=== PATIENT | female | born 1930 | race Caucasian/White ===

== ENCOUNTER 2016-08-17 09:00 | Inpatient (IN) | payer OTHER ==
[~2016-08-17] VITALS: Ht 154.9 cm; Wt 50.3 kg
[~2016-08-17 09:00] MED LIST: AMOX TR-K CLV1 EAC4 PO; ASPIRIN EC325 MG PO; ATIVAN1 MG PO; FOSAMAX70 MG PO; HYDROCODON-ACE1 EAC7 PO; IRON325 M1 PO; LO-DOSE ASPIRIN81 M1 PO; SENNA-TIME S T1 EACH PO; TYLENOL EXTRA500 MG PO; VITAMIN D33000 UNIT PO
[2016-08-17 10:16] VITALS: BP 107/61
[2016-08-17 16:49] LABS: HEMATOCRIT 31.8 % (36.0-46.0); MCH 30.3 PG (29.0-34.0); MCHC 32.7 G/DL (30.0-36.0); MCV 92.7 FL (83-99); MEAN PLAT.VOLUME 10.1 uM^3 (9.5-12.4); PLATELET COUNT 188 K/uL (156-360); RBC DIS.WIDTH-CV 12.6 % (11.8-14.6); RBC DIS.WIDTH-SD 42.9 % (39-53); RED BLOOD COUNT 3.43 M/uL (3.80-5.20); WHITE BLOOD COUNT 8.8 K/uL (4.1-10.2)
[2016-08-17 22:07] VITALS: BP 125/60
[2016-08-17 23:27] VITALS: BP 114/60
[2016-08-18 04:25] VITALS: BP 121/60
[2016-08-18 05:53] LABS: HEMATOCRIT 31.8 % (36.0-46.0); MCH 30.3 PG (29.0-34.0); MCV 91.6 FL (83-99); MEAN PLAT.VOLUME 10.6 uM^3 (9.5-12.4); PLATELET COUNT 198 K/uL (156-360); RBC DIS.WIDTH-CV 12.5 % (11.8-14.6); RBC DIS.WIDTH-SD 41.7 % (39-53); RED BLOOD COUNT 3.47 M/uL (3.80-5.20); WHITE BLOOD COUNT 8.5 K/uL (4.1-10.2)
[2016-08-18 06:22] LABS: ANION GAP 8 MEQ/L (2-14); CHLORIDE 103 MEQ/L (99-109); GFR ESTIMATE (CALCULATED) 56 mL/min/; GLUCOSE 122 mg/dL (70-99); POTASSIUM 3.8 MEQ/L (3.7-5.4); SAMPLE HEMOLYSIS CHECK 0; SAMPLE ICTERIC CHECK 0; SAMPLE LIPEMIA CHECK 0; SODIUM 136 MEQ/L (136-147); UREA NITROGEN (BUN) 11 mg/dL (9-23)
[2016-08-18 08:00] VITALS: BP 118/63
[2016-08-18 16:00] VITALS: BP 123/60
[2016-08-18 16:00] LABS: HEMATOCRIT 32.2 % (36.0-46.0); MCV 89.7 FL (83-99)
[2016-08-19] VITALS: BP 131/94
[2016-08-19] MEDS ORDERED: HYDROCODON-ACE1 EAC7 PO (08:38)
[2016-08-19] MEDS ORDERED: SENNA PLUS TAB1 EACH PO (08:38)
[2016-08-19] MEDS ORDERED: LOVENOX30 MG/0.3 SC (08:38)
[2016-08-19] MEDS ORDERED: CELECOXIB200 MG PO (08:38)
[2016-08-19 08:44] VITALS: BP 144/72
[2016-08-19 15:52] VITALS: BP 137/85
== END 2016-08-19 16:20 | DRG 470 ==
LOC: 3EAST 09:00 → 2SOUTH 09:00 → 3EAST 19:09
PROVIDERS: Orthopaedic Surgery
PROC: 0SRB02A Replacement of Left Hip Joint with Metal on Polyethylene Synthetic Substitute, Uncemented, Open Approach (ICD-10-PCS; principal; 2016-08-17)
DX: M16.12 Unilateral primary osteoarthritis, left hip (principal); M21.372 Foot drop, left foot; M81.0 Age-related osteoporosis without current pathological fracture; Z96.653 Presence of artificial knee joint, bilateral; Z88.1 Allergy status to other antibiotic agents; Z88.2 Allergy status to sulfonamides
CPT/HCPCS: 73501; 76000; 80048; 85014; 85018; 85027; 97530 GP; J0690; J1170; J1650; J2250; J3010; J7030; J7050

== ENCOUNTER 2016-08-19 10:48 | Inpatient (IN) | payer OTHER ==
[~2016-08-19] VITALS: Ht 154.9 cm; Wt 53.4 kg
[~2016-08-19 10:48] MED LIST changes: +CELECOXIB200 MG PO; +LOVENOX30 MG/0.3 SC; +SENNA PLUS TAB1 EACH PO
[2016-08-19 16:39] VITALS: BP 132/65
[2016-08-20] VITALS: BP 111/57
[2016-08-20 05:28] VITALS: BP 106/52
[2016-08-20 06:26] LABS: HEMATOCRIT 27.7 % (36.0-46.0); MCH 30.7 PG (29.0-34.0); MCHC 33.6 G/DL (30.0-36.0); MCV 91.4 FL (83-99); MEAN PLAT.VOLUME 10.9 uM^3 (9.5-12.4); PLATELET COUNT 185 K/uL (156-360); RBC DIS.WIDTH-SD 43.5 % (39-53); RED BLOOD COUNT 3.03 M/uL (3.80-5.20); WHITE BLOOD COUNT 8.9 K/uL (4.1-10.2)
[2016-08-20 06:50] LABS: ALKALINE PHOSPHATASE 55 IU/L (3-129); ANION GAP 7 MEQ/L (2-14); CHLORIDE 109 MEQ/L (99-109); GFR ESTIMATE (CALCULATED) > 59 mL/min/; GLUCOSE 100 mg/dL (70-99); POTASSIUM 3.5 MEQ/L (3.7-5.4); SAMPLE HEMOLYSIS CHECK 0; SAMPLE ICTERIC CHECK 0; SAMPLE LIPEMIA CHECK 0; SODIUM 141 MEQ/L (136-147); TOTAL BILIRUBIN 0.6 MG/DL (0.0-1.0); UREA NITROGEN (BUN) 12 mg/dL (9-23)
[2016-08-20 16:01] VITALS: BP 104/58
[2016-08-21 05:48] VITALS: BP 117/58
[2016-08-21 16:01] VITALS: BP 105/57
[2016-08-22 05:42] VITALS: BP 115/65
[2016-08-22 16:30] VITALS: BP 117/63
[2016-08-23 05:44] VITALS: BP 116/69
[2016-08-23 15:45] VITALS: BP 129/61
[2016-08-24 05:31] VITALS: BP 114/56
[2016-08-24 15:28] VITALS: BP 125/56
[2016-08-25 05:56] VITALS: BP 111/52
[2016-08-25 15:08] VITALS: BP 107/56
[2016-08-25] MEDS ORDERED: FOLIC ACID1 MG PO (18:38)
[2016-08-25] MEDS ORDERED: SENNA PLUS TAB1 EACH PO (18:38)
[2016-08-25] MEDS ORDERED: ALPRAZOLAM0.25 M2 PO (18:38)
[2016-08-25] MEDS ORDERED: ASCORBIC ACID500 M3 PO (18:38)
[2016-08-25] MEDS ORDERED: LIDOCAINE700 MG TD (18:38)
[2016-08-25 20:59] LABS: HEMATOCRIT 32.1 % (36.0-46.0); MCH 30.3 PG (29.0-34.0); MCHC 32.4 G/DL (30.0-36.0); MCV 93.6 FL (83-99); RBC DIS.WIDTH-CV 13.6 % (11.8-14.6); RBC DIS.WIDTH-SD 46.2 % (39-53); RED BLOOD COUNT 3.43 M/uL (3.80-5.20); WHITE BLOOD COUNT 9.1 K/uL (4.1-10.2)
[2016-08-25 21:05] LABS: MEAN PLAT.VOLUME 9.6 uM^3 (9.5-12.4); PLATELET COUNT 321 K/uL (156-360)
[2016-08-25 21:23] LABS: ANION GAP 11 MEQ/L (2-14); CHLORIDE 103 MEQ/L (99-109); GFR ESTIMATE (CALCULATED) > 59 mL/min/; GLUCOSE 117 mg/dL (70-99); POTASSIUM 4.1 MEQ/L (3.7-5.4); SAMPLE HEMOLYSIS CHECK 0; SAMPLE ICTERIC CHECK 0; SAMPLE LIPEMIA CHECK 0; SODIUM 139 MEQ/L (136-147)
[2016-08-25 22:02] LABS: UREA NITROGEN (BUN) 23 mg/dL (9-23)
[2016-08-26 04:37] VITALS: BP 100/57
== END 2016-08-26 14:39 | DRG 560 ==
LOC: 3WEST 10:48
PROVIDERS: Physical Medicine & Rehabilitation Pain Medicine
PROC: F07M0ZZ Range of Motion and Joint Mobility Treatment of Musculoskeletal System - Whole Body (ICD-10-PCS; principal; 2016-08-19)
DX: Z47.32 Aftercare following explantation of hip joint prosthesis (principal); Z96.642 Presence of left artificial hip joint; R26.2 Difficulty in walking, not elsewhere classified; D62 Acute posthemorrhagic anemia; M21.372 Foot drop, left foot; E83.51 Hypocalcemia; E87.6 Hypokalemia; F41.9 Anxiety disorder, unspecified; M81.0 Age-related osteoporosis without current pathological fracture; M47.816 Spondylosis without myelopathy or radiculopathy, lumbar region; M48.06 Spinal stenosis, lumbar region; Z96.653 Presence of artificial knee joint, bilateral; Z88.1 Allergy status to other antibiotic agents; Z88.2 Allergy status to sulfonamides; Z88.5 Allergy status to narcotic agent
CPT/HCPCS: 80048; 80053; 85027; 97110 GO; 97530 GP; J1650

== ENCOUNTER 2016-10-15 14:59 | Inpatient (IN) | payer OTHER ==
[~2016-10-15] VITALS: Ht 154.9 cm; Wt 66.2 kg
[~2016-10-15 14:59] MED LIST changes: +ALPRAZOLAM0.25 M2 PO; +ASCORBIC ACID500 M3 PO; +FOLIC ACID1 MG PO; +LIDOCAINE700 MG TD
[2016-10-15 16:03] LABS: HEMATOCRIT 43.8 % (36.0-46.0); MCH 29.5 PG (29.0-34.0); MCHC 32.6 G/DL (30.0-36.0); MCV 90.3 FL (83-99); PLATELET COUNT 167 K/uL (156-360); RBC DIS.WIDTH-CV 12.9 % (11.8-14.6); RBC DIS.WIDTH-SD 42.9 % (39-53); RED BLOOD COUNT 4.85 M/uL (3.80-5.20); WHITE BLOOD COUNT 5.9 K/uL (4.1-10.2)
[2016-10-15 16:12] LABS: CHLORIDE 100 mEq/L (99-109); POTASSIUM 3.9 mEq/L (3.7-5.4); SODIUM 137 mEq/L (136-147)
[2016-10-15 16:14] LABS: GLUCOSE 110 mg/dL (70-99)
[2016-10-15 16:15] LABS: ANION GAP 17 MEQ/L (2-14)
[2016-10-15 16:16] LABS: TOTAL BILIRUBIN 0.6 mg/dL (0.0-1.0)
[2016-10-15 16:18] LABS: ALKALINE PHOSPHATASE 79 IU/L (3-129); GFR ESTIMATE (CALCULATED) 25 mL/min/
[2016-10-15 16:19] LABS: UREA NITROGEN (BUN) 42 mg/dL (9-23)
[2016-10-15 18:00] LABS: INFLUENZA A VIRAL ANTIGEN NEGATIVE
[2016-10-15 18:01] LABS: INFLUENZA B VIRAL ANTIGEN POSITIVE
[2016-10-15] MEDS ORDERED: LIDODERM 5% P1 PATCH TD (18:21)
[2016-10-15 18:34] LABS: ADD MIUA? YES; BILIRUBIN NEGATIVE; BLOOD MODERATE; GLUCOSE (STRIP) NEGATIVE; KETONES NEGATIVE; LEUKOCYTES NEGATIVE; NITRITE NEGATIVE; PROTEIN (STRIP) 100; UROBILINOGEN 0.2 MG/DL (0.2-1.0)
[2016-10-15 18:40] LABS: COLOR DK YELLOW ((YELLOW))
[2016-10-15 19:39] LABS: BACTERIA NONE SEEN /HPF; CALCIUM OXALATE CRYSTALS 1+ /HPF; EPITHELIAL CELLS RARE /HPF; MUCUS NONE SEEN /LPF; RED BLOOD CELLS 0-5 /HPF (0-5); WHITE BLOOD CELLS 0-5 /HPF (0-5)
[2016-10-15 20:07] LABS: BASE EXCESS -4.5 mEq/L (-3 to +3); BICARBONATE 17.8 mEq/L (22-26); CARBOXY HGB 1.5 % (0-5); METHEMOGLOBIN 1.2 % (0-1.5); PCO2 25 mm Hg (35-45); PO2 64 mm Hg (80-100); SITE RR; pH 7.46 (7.35-7.45)
[2016-10-15 20:08] LABS: COMMENTS - BLOOD GASES A+C+; DEVICE HHFNC; FI02 100 %; O2 FLOW 40 L/MIN
[2016-10-15 21:01] VITALS: BP 95/80
[2016-10-15 22:00] VITALS: BP 100/51
[2016-10-15 23:00] VITALS: BP 98/52
[2016-10-15 23:13] LABS: METH RESISTANT S AUREUS PCR NEGATIVE (NEGATIVE)
[2016-10-15 23:16] LABS: PROBE CHECK PASS; SPECIMEN PROCESSING CONTROL PASS
[2016-10-16] VITALS (24 sets, daily range): BP systolic 65–150; BP diastolic 41–81
[2016-10-16 07:18] LABS: ALKALINE PHOSPHATASE 55 IU/L (3-129); ANION GAP 11 MEQ/L (2-14); CHLORIDE 109 MEQ/L (99-109); DIRECT BILIRUBIN 0.2 mg/dL (0.0-0.3); GLUCOSE 87 mg/dL (70-99); POTASSIUM 3.6 MEQ/L (3.7-5.4); SAMPLE HEMOLYSIS CHECK 0; SAMPLE ICTERIC CHECK 0; SAMPLE LIPEMIA CHECK 0; SODIUM 140 MEQ/L (136-147); TOTAL BILIRUBIN 0.7 MG/DL (0.0-1.0); UREA NITROGEN (BUN) 31 mg/dL (9-23)
[2016-10-16 07:56] LABS: GFR ESTIMATE (CALCULATED) 41 mL/min/; VANCOMYCIN, TROUGH 6.5 MCG/ML (10-20)
[2016-10-16 10:05] LABS: HEMATOCRIT 38.2 % (36.0-46.0); MCHC 32.5 G/DL (30.0-36.0); MCV 92.3 FL (83-99); MEAN PLAT.VOLUME 11.8 uM^3 (9.5-12.4); PLATELET COUNT 123 K/uL (156-360); RBC DIS.WIDTH-CV 13.2 % (11.8-14.6); RBC DIS.WIDTH-SD 45.1 % (39-53); RED BLOOD COUNT 4.14 M/uL (3.80-5.20); WHITE BLOOD COUNT 5.7 K/uL (4.1-10.2)
[2016-10-16 10:40] LABS: ABS NEUTROPHIL COUNT 5.5; EOSINOPHIL ABS CT 0; INSTRUMENT ABS NEUTROPHIL CT 5.3 K/uL; LYMPHOCYTES 1.7 % (15.0-45.0); METAMYELOCYTES 0.9 %; MICROCYTOSIS 1+; PLAT.SUFFICIENCY DECREASED; SEG.NEUTROPHILS 56.5 % (46.0-76.0)
[2016-10-16 15:32] LABS: ABS NEUTROPHIL COUNT 5.6; EOSINOPHIL ABS CT 0; HEMATOCRIT 33.3 % (36.0-46.0); INSTRUMENT ABS NEUTROPHIL CT 5.5 K/uL; MCH 30.2 PG (29.0-34.0); MCHC 33.3 G/DL (30.0-36.0); MCV 90.7 FL (83-99); PLATELET COUNT 121 K/uL (156-360); RBC DIS.WIDTH-CV 13.2 % (11.8-14.6); RBC DIS.WIDTH-SD 43.8 % (39-53); RED BLOOD COUNT 3.67 M/uL (3.80-5.20); WHITE BLOOD COUNT 6.3 K/uL (4.1-10.2)
[2016-10-17] VITALS (19 sets, daily range): BP systolic 95–163; BP diastolic 50–95
[2016-10-17 06:05] LABS: HEMATOCRIT 36.3 % (36.0-46.0); MCH 29.9 PG (29.0-34.0); MCHC 33.1 G/DL (30.0-36.0); MCV 90.3 FL (83-99); MEAN PLAT.VOLUME 11.5 uM^3 (9.5-12.4); PLATELET COUNT 136 K/uL (156-360); RBC DIS.WIDTH-CV 13.3 % (11.8-14.6); RBC DIS.WIDTH-SD 44.5 % (39-53); RED BLOOD COUNT 4.02 M/uL (3.80-5.20); WHITE BLOOD COUNT 7.9 K/uL (4.1-10.2)
[2016-10-17 06:31] LABS: ALKALINE PHOSPHATASE 64 IU/L (3-129); ANION GAP 11 MEQ/L (2-14); CHLORIDE 113 MEQ/L (99-109); GLUCOSE 85 mg/dL (70-99); POTASSIUM 3.1 MEQ/L (3.7-5.4); SAMPLE HEMOLYSIS CHECK 0; SAMPLE ICTERIC CHECK 0; SAMPLE LIPEMIA CHECK 0; SODIUM 145 MEQ/L (136-147); UREA NITROGEN (BUN) 22 mg/dL (9-23)
[2016-10-17 06:34] LABS: GFR ESTIMATE (CALCULATED) > 59 mL/min/; TOTAL BILIRUBIN 1.8 MG/DL (0.0-1.0)
[2016-10-17 06:54] LABS: ABS NEUTROPHIL COUNT 7.4; BAND NEUTROPHILS 23.3 % (0-8.0); BURR CELLS 2+; EOSINOPHIL ABS CT 0.1; EOSINOPHILS 0.8 % (0-5.0); HELMET CELLS 1+; INSTRUMENT ABS NEUTROPHIL CT 6.9 K/uL; LYMPHOCYTES 4.3 % (15.0-45.0); OVALOCYTES 1+; PLAT.SUFFICIENCY DECREASED; POIKILOCYTOSIS 2+; SEG.NEUTROPHILS 70.7 % (46.0-76.0)
[2016-10-18] VITALS (23 sets, daily range): BP systolic 86–167; BP diastolic 53–101
[2016-10-18 06:33] LABS: ANION GAP 12 MEQ/L (2-14); CHLORIDE 110 MEQ/L (99-109); GFR ESTIMATE (CALCULATED) > 59 mL/min/; POTASSIUM 3.6 MEQ/L (3.7-5.4); SAMPLE HEMOLYSIS CHECK 0; SAMPLE ICTERIC CHECK 1; SAMPLE LIPEMIA CHECK 0; SODIUM 144 MEQ/L (136-147); UREA NITROGEN (BUN) 19 mg/dL (9-23)
[2016-10-18 06:35] LABS: GLUCOSE 131 mg/dL (70-99)
[2016-10-18 10:27] LABS: BASE EXCESS 1.6 mEq/L (-3 to +3); BICARBONATE 24.6 mEq/L (22-26); COMMENTS - BLOOD GASES NEG A+C+; DEVICE HFNC; O2 FLOW 10 L/MIN; PCO2 33 mm Hg (35-45); PO2 86 mm Hg (80-100); SITE LB; TOTAL RESP RATE 28 resp/min; pH 7.48 (7.35-7.45)
[2016-10-18 19:27] LABS: ANION GAP 12 MEQ/L (2-14); CHLORIDE 111 MEQ/L (99-109); GFR ESTIMATE (CALCULATED) > 59 mL/min/; GLUCOSE 125 mg/dL (70-99); MAGNESIUM 2.3 mg/dl (1.3-2.7); POTASSIUM 3.7 MEQ/L (3.7-5.4); SAMPLE HEMOLYSIS CHECK 0; SAMPLE ICTERIC CHECK 1; SAMPLE LIPEMIA CHECK 0; SODIUM 146 MEQ/L (136-147); UREA NITROGEN (BUN) 21 mg/dL (9-23)
[2016-10-18 20:40] LABS: BASE EXCESS -4.2 mEq/L (-3 to +3); CARBOXY HGB 1.3 % (0-5); COMMENTS - BLOOD GASES C+; DEVICE VENT; FI02 100 %; MECHANICAL RATE 16 resp/min; METHEMOGLOBIN 1.7 % (0-1.5); MODE A/C; PCO2 38 mm Hg (35-45); PO2 190 mm Hg (80-100); SITE ALINE; TOTAL RESP RATE 39 resp/min; pH 7.35 (7.35-7.45)
[2016-10-18 20:41] LABS: PEEP 5 CM/H20; TIDAL VOLUME 350 ML
[2016-10-19] VITALS (7 sets, daily range): BP systolic 92–105; BP diastolic 50–59
[2016-10-19 00:55] LABS: CREATINE KINASE 605 IU/L (1-294); TOTAL CK 605 IU/L (1-294)
[2016-10-19 01:01] LABS: CK-MB 7.8 ng/mL (0.0-4.9)
[2016-10-19 01:11] LABS: TROP-I INTERPRETATION POSITIVE; TROPONIN-I 0.69 ng/mL (0.0-0.30)
[2016-10-19 06:16] LABS: TROP-I INTERPRETATION INDETERMINATE
[2016-10-19 06:39] LABS: HEMATOCRIT 31.9 % (36.0-46.0); MCH 29.3 PG (29.0-34.0); MCHC 32.9 G/DL (30.0-36.0); MCV 89.1 FL (83-99); MEAN PLAT.VOLUME 10.7 uM^3 (9.5-12.4); NRBC (%) 0.1 /100 WBC (0-0); RBC DIS.WIDTH-CV 14.1 % (11.8-14.6); RBC DIS.WIDTH-SD 46.5 % (39-53); RED BLOOD COUNT 3.58 M/uL (3.80-5.20)
[2016-10-19 06:47] LABS: PLATELET COUNT 207 K/uL (156-360); WHITE BLOOD COUNT 14.9 K/uL (4.1-10.2)
[2016-10-19 07:07] LABS: EOSINOPHIL (%) 0.1 % (0-5); IMMATURE GRANULOCYTE (%) 2.1 % (0.0-0.7); IMMATURE GRANULOCYTE COUNT 0.3 K/uL; INSTRUMENT ABS NEUTROPHIL CT 12.9 K/uL; LYMPHOCYTE COUNT 1.2 K/uL (1.0-2.8); MONOCYTE (%) 2.6 % (3-12); MONOCYTE COUNT 0.4 K/uL (0-0.8); NEUTROPHIL (%) 86.7 % (45-76); NEUTROPHIL COUNT 12.9 K/uL (1.8-6.4)
[2016-10-19 07:17] LABS: CK-MB 5.4 ng/mL (0.0-4.9)
[2016-10-19 07:21] LABS: ANION GAP 12 MEQ/L (2-14); CHLORIDE 109 MEQ/L (99-109); CREATINE KINASE 439 IU/L (1-294); GFR ESTIMATE (CALCULATED) > 59 mL/min/; GLUCOSE 181 mg/dL (70-99); MAGNESIUM 2.3 mg/dl (1.3-2.7); SAMPLE HEMOLYSIS CHECK 0; SAMPLE ICTERIC CHECK 0; SAMPLE LIPEMIA CHECK 0; SODIUM 148 MEQ/L (136-147); TOTAL CK 439 IU/L (1-294); UREA NITROGEN (BUN) 22 mg/dL (9-23)
[2016-10-19 09:05] LABS: INTERNAL CONTROL VALID? YES
[2016-10-19 10:07] LABS: BASE EXCESS 5.4 mEq/L (-3 to +3); CARBOXY HGB 1.4 % (0-5); METHEMOGLOBIN 1.8 % (0-1.5)
[2016-10-19 10:08] LABS: BICARBONATE 27.2 mEq/L (22-26); COMMENTS - BLOOD GASES C+; DEVICE 840 VENT; INSPIRATION TIME 0.8 seconds; MECHANICAL RATE 18 resp/min; MODE ACPC; PCO2 29 mm Hg (35-45); PEEP 5 CM/H20; PO2 78 mm Hg (80-100); PRESSURE CONTROL VENTILATION 18 CM H20; SITE A LINE; TOTAL RESP RATE 18 resp/min; pH 7.58 (7.35-7.45)
[2016-10-19 12:08] LABS: POINT-OF-CARE METER ID UU13113803
[2016-10-19 12:46] LABS: CREATINE KINASE 470 IU/L (1-294); TOTAL CK 470 IU/L (1-294)
[2016-10-19 12:50] LABS: TROP-I INTERPRETATION NEGATIVE
[2016-10-19 12:51] LABS: CK-MB 4.8 ng/mL (0.0-4.9)
[2016-10-19 17:57] LABS: POINT-OF-CARE METER ID UU14162636
[2016-10-19 18:51] LABS: TROP-I INTERPRETATION NEGATIVE; TROPONIN-I 0.18 ng/mL (0.0-0.30)
[2016-10-19 19:05] LABS: CREATINE KINASE 551 IU/L (1-294); TOTAL CK 551 IU/L (1-294)
[2016-10-19 19:27] LABS: ANION GAP 11 MEQ/L (2-14); CHLORIDE 110 MEQ/L (99-109); GFR ESTIMATE (CALCULATED) > 59 mL/min/; GLUCOSE 131 mg/dL (70-99); POTASSIUM 3.2 MEQ/L (3.7-5.4); SAMPLE HEMOLYSIS CHECK 0; SAMPLE ICTERIC CHECK 0; SAMPLE LIPEMIA CHECK 0; SODIUM 145 MEQ/L (136-147); UREA NITROGEN (BUN) 16 mg/dL (9-23)
[2016-10-19 19:50] LABS: MAGNESIUM 1.9 mg/dl (1.3-2.7)
[2016-10-20 05:43] LABS: POINT-OF-CARE METER ID UU14162636
[2016-10-20 05:46] LABS: HEMATOCRIT 28.5 % (36.0-46.0); MCH 29.9 PG (29.0-34.0); MCHC 33.3 G/DL (30.0-36.0); MCV 89.6 FL (83-99); MEAN PLAT.VOLUME 10.8 uM^3 (9.5-12.4); PLATELET COUNT 169 K/uL (156-360); RBC DIS.WIDTH-CV 14.5 % (11.8-14.6); RBC DIS.WIDTH-SD 47.1 % (39-53); RED BLOOD COUNT 3.18 M/uL (3.80-5.20)
[2016-10-20 06:51] LABS: GFR ESTIMATE (CALCULATED) > 59 mL/min/; GLUCOSE 132 mg/dL (70-99); MAGNESIUM 1.8 mg/dl (1.3-2.7); SAMPLE HEMOLYSIS CHECK 0; SAMPLE ICTERIC CHECK 0; SAMPLE LIPEMIA CHECK 0; UREA NITROGEN (BUN) 15 mg/dL (9-23)
[2016-10-20 06:59] LABS: ABS NEUTROPHIL COUNT 14.9; EOSINOPHIL ABS CT 0.3; EOSINOPHILS 1.7 % (0-5.0); INSTRUMENT ABS NEUTROPHIL CT 14.2 K/uL; LYMPHOCYTES 9.5 % (15.0-45.0); PLAT.SUFFICIENCY ADEQUATE; SEG.NEUTROPHILS 81.9 % (46.0-76.0)
[2016-10-20 07:01] LABS: ANION GAP 10 MEQ/L (2-14); CHLORIDE 108 MEQ/L (99-109); POTASSIUM 3.4 MEQ/L (3.7-5.4); SODIUM 142 MEQ/L (136-147)
[2016-10-20 11:33] LABS: BASE EXCESS 2.8 mEq/L (-3 to +3); BICARBONATE 24.5 mEq/L (22-26); CARBOXY HGB 2.1 % (0-5); METHEMOGLOBIN 1.8 % (0-1.5); PCO2 28 mm Hg (35-45); PO2 76 mm Hg (80-100); pH 7.55 (7.35-7.45)
[2016-10-20 11:35] LABS: COMMENTS - BLOOD GASES C+ANA; DEVICE 840 PB; SITE ALINE
[2016-10-20 11:36] LABS: FI02 30 %; INSPIRATION TIME 0.9 seconds; MECHANICAL RATE 14 resp/min; MODE AC PC; PEEP 8 CM/H20; PRESSURE CONTROL VENTILATION 18 CM H20; TOTAL RESP RATE 21 resp/min
[2016-10-20 11:37] LABS: POINT-OF-CARE METER ID UU14162636
[2016-10-20 14:42] LABS: BASE EXCESS 1.6 mEq/L (-3 to +3); BICARBONATE 22.7 mEq/L (22-26); PCO2 26 mm Hg (35-45); PO2 66 mm Hg (80-100); pH 7.55 (7.35-7.45)
[2016-10-20 14:45] LABS: COMMENTS - BLOOD GASES C+ANA; DEVICE 840 PB; FI02 30 %; INSPIRATION TIME 0.9 seconds; MECHANICAL RATE 12 resp/min; MODE AC PC; PEEP 5 CM/H20; PRESSURE CONTROL VENTILATION 15 CM H20; SITE ALINE; TOTAL RESP RATE 24 resp/min
[2016-10-20 16:31] LABS: HEMATOCRIT 30.4 % (36.0-46.0); MCH 29.8 PG (29.0-34.0); MCHC 33.2 G/DL (30.0-36.0); MCV 89.7 FL (83-99); MEAN PLAT.VOLUME 10.6 uM^3 (9.5-12.4); NRBC (%) 0.1 /100 WBC (0-0); PLATELET COUNT 196 K/uL (156-360); RBC DIS.WIDTH-CV 14.8 % (11.8-14.6); RBC DIS.WIDTH-SD 48.8 % (39-53); RED BLOOD COUNT 3.39 M/uL (3.80-5.20); WHITE BLOOD COUNT 21.8 K/uL (4.1-10.2)
[2016-10-20 17:21] LABS: C DIFF TOXIN NEGATIVE (NEGATIVE)
[2016-10-20 17:33] LABS: PROBE CHECK PASS; SPECIMEN PROCESSING CONTROL PASS
[2016-10-20 18:34] LABS: POINT-OF-CARE METER ID UU14162636
[2016-10-20 23:26] LABS: POINT-OF-CARE METER ID UU14162636
[2016-10-21 05:00] VITALS: BP 114/62
[2016-10-21 06:09] LABS: HEMATOCRIT 28.5 % (36.0-46.0); MCH 29.8 PG (29.0-34.0); MCV 90.5 FL (83-99); MEAN PLAT.VOLUME 10.9 uM^3 (9.5-12.4); NRBC (%) 0.1 /100 WBC (0-0); PLATELET COUNT 202 K/uL (156-360); RBC DIS.WIDTH-CV 14.9 % (11.8-14.6); RBC DIS.WIDTH-SD 49.7 % (39-53); RED BLOOD COUNT 3.15 M/uL (3.80-5.20); WHITE BLOOD COUNT 21.9 K/uL (4.1-10.2)
[2016-10-21 06:55] LABS: ANION GAP 12 MEQ/L (2-14); CHLORIDE 111 MEQ/L (99-109); GFR ESTIMATE (CALCULATED) > 59 mL/min/; GLUCOSE 129 mg/dL (70-99); MAGNESIUM 1.7 mg/dl (1.3-2.7); POTASSIUM 3.7 MEQ/L (3.7-5.4); SAMPLE HEMOLYSIS CHECK 0; SAMPLE ICTERIC CHECK 0; SAMPLE LIPEMIA CHECK 0; SODIUM 144 MEQ/L (136-147); UREA NITROGEN (BUN) 16 mg/dL (9-23)
[2016-10-21 07:14] LABS: POINT-OF-CARE METER ID UU13113803
[2016-10-21 07:30] VITALS: BP 110/65
[2016-10-21 07:57] LABS: ABS NEUTROPHIL COUNT 21.1; ANISOCYTOSIS 1+; BAND NEUTROPHILS 4.6 % (0-8.0); EOSINOPHIL ABS CT 0; INSTRUMENT ABS NEUTROPHIL CT 19.1 K/uL; LYMPHOCYTES 2.7 % (15.0-45.0); MYELOCYTES 0.9 %; PLAT.SUFFICIENCY ADEQUATE; SEG.NEUTROPHILS 91.8 % (46.0-76.0); SMUDGE CELLS 1.8
[2016-10-21 11:51] LABS: POINT-OF-CARE METER ID UU13113803
[2016-10-21 13:52] LABS: BASE EXCESS -0.6 mEq/L (-3 to +3); BICARBONATE 22.3 mEq/L (22-26); CARBOXY HGB 2.5 % (0-5); METHEMOGLOBIN 1.8 % (0-1.5); PCO2 30 mm Hg (35-45); pH 7.48 (7.35-7.45)
[2016-10-21 13:53] LABS: PO2 52 mm Hg (80-100)
[2016-10-21 13:54] LABS: COMMENTS - BLOOD GASES C+ANA; DEVICE 840 PB; FI02 30 %; INSPIRATION TIME 0.9 seconds; MECHANICAL RATE 12 resp/min; MODE ACPC; PRESSURE CONTROL VENTILATION 13 CM H20; SITE ALINE; TOTAL RESP RATE 26 resp/min
[2016-10-21 13:55] LABS: PEEP 5 CM/H20
[2016-10-21 17:54] LABS: POINT-OF-CARE METER ID UU13113803
[2016-10-21 23:00] VITALS: BP 110/65
[2016-10-22] VITALS (10 sets, daily range): BP systolic 78–151; BP diastolic 40–87
[2016-10-22 05:22] LABS: POINT-OF-CARE METER ID UU13113731
[2016-10-22 05:49] LABS: HEMATOCRIT 26.3 % (36.0-46.0); MCH 29.4 PG (29.0-34.0); MCHC 32.3 G/DL (30.0-36.0); MEAN PLAT.VOLUME 10.6 uM^3 (9.5-12.4); NRBC (%) 0.1 /100 WBC (0-0); PLATELET COUNT 205 K/uL (156-360); RBC DIS.WIDTH-CV 14.8 % (11.8-14.6); RBC DIS.WIDTH-SD 49.9 % (39-53); RED BLOOD COUNT 2.89 M/uL (3.80-5.20); WHITE BLOOD COUNT 19.3 K/uL (4.1-10.2)
[2016-10-22 07:09] LABS: EOSINOPHIL (%) 0.5 % (0-5); EOSINOPHIL COUNT 0.1 K/uL (0-0.3); HEMATOLOGY COMMENT 1 SMEAR COMPATIBLE; IMMATURE GRANULOCYTE (%) 4.3 % (0.0-0.7); IMMATURE GRANULOCYTE COUNT 0.8 K/uL; INSTRUMENT ABS NEUTROPHIL CT 16.9 K/uL; LYMPHOCYTE COUNT 1.1 K/uL (1.0-2.8); MONOCYTE (%) 1.7 % (3-12); MONOCYTE COUNT 0.3 K/uL (0-0.8); NEUTROPHIL (%) 87.5 % (45-76); NEUTROPHIL COUNT 16.9 K/uL (1.8-6.4); PLAT.SUFFICIENCY ADEQUATE
[2016-10-22 07:32] LABS: ANION GAP 11 MEQ/L (2-14); CHLORIDE 111 MEQ/L (99-109); GFR ESTIMATE (CALCULATED) > 59 mL/min/; GLUCOSE 149 mg/dL (70-99); MAGNESIUM 1.8 mg/dl (1.3-2.7); POTASSIUM 3.3 MEQ/L (3.7-5.4); SAMPLE HEMOLYSIS CHECK 0; SAMPLE ICTERIC CHECK 0; SAMPLE LIPEMIA CHECK 0; SODIUM 144 MEQ/L (136-147); UREA NITROGEN (BUN) 15 mg/dL (9-23)
[2016-10-22 11:22] LABS: BASE EXCESS -1.3 mEq/L (-3 to +3); BICARBONATE 21.8 mEq/L (22-26); CARBOXY HGB 2.4 % (0-5); METHEMOGLOBIN 1.7 % (0-1.5); PCO2 30 mm Hg (35-45); PO2 54 mm Hg (80-100); pH 7.47 (7.35-7.45)
[2016-10-22 11:23] LABS: COMMENTS - BLOOD GASES C+ANA; DEVICE 840 PB; FI02 30 %; MECHANICAL RATE 12 resp/min; MODE AC; PEEP 5 CM/H20; SITE ALINE; TIDAL VOLUME 400 ML; TOTAL RESP RATE 34 resp/min
[2016-10-22 12:30] LABS: POINT-OF-CARE METER ID UU13113731
[2016-10-22 18:13] LABS: POINT-OF-CARE METER ID UU13113731
[2016-10-23] VITALS (25 sets, daily range): BP systolic 78–145; BP diastolic 48–79
[2016-10-23 00:14] LABS: BASE EXCESS -0.6 mEq/L (-3 to +3); BICARBONATE 21.8 mEq/L (22-26); COMMENTS - BLOOD GASES A+C+; METHEMOGLOBIN 1.9 % (0-1.5); PCO2 28 mm Hg (35-45); PO2 72 mm Hg (80-100); SITE RR
[2016-10-23 00:15] LABS: DEVICE 840; FI02 40 %; MECHANICAL RATE 12 resp/min; MODE AC; PEEP 5 CM/H20; TIDAL VOLUME 400 ML; TOTAL RESP RATE 44 resp/min
[2016-10-23 01:23] LABS: POINT-OF-CARE METER ID UU14162636
[2016-10-23 05:43] LABS: POINT-OF-CARE METER ID UU14162636
[2016-10-23 06:18] LABS: ANION GAP 10 MEQ/L (2-14); CHLORIDE 111 MEQ/L (99-109); GFR ESTIMATE (CALCULATED) > 59 mL/min/; GLUCOSE 164 mg/dL (70-99); POTASSIUM 3.8 MEQ/L (3.7-5.4); SAMPLE HEMOLYSIS CHECK 0; SAMPLE ICTERIC CHECK 0; SAMPLE LIPEMIA CHECK 0; SODIUM 142 MEQ/L (136-147); UREA NITROGEN (BUN) 12 mg/dL (9-23)
[2016-10-23 07:21] LABS: EOSINOPHIL (%) 0.4 % (0-5); EOSINOPHIL COUNT 0.1 K/uL (0-0.3); HEMATOCRIT 30.6 % (36.0-46.0); IMMATURE GRANULOCYTE (%) 2.3 % (0.0-0.7); IMMATURE GRANULOCYTE COUNT 0.5 K/uL; INSTRUMENT ABS NEUTROPHIL CT 19.8 K/uL; LYMPHOCYTE COUNT 1.2 K/uL (1.0-2.8); MCH 29.6 PG (29.0-34.0); MCV 89.7 FL (83-99); MEAN PLAT.VOLUME 10.6 uM^3 (9.5-12.4); MONOCYTE (%) 2.3 % (3-12); MONOCYTE COUNT 0.5 K/uL (0-0.8); NEUTROPHIL (%) 89.4 % (45-76); NEUTROPHIL COUNT 19.8 K/uL (1.8-6.4); NRBC (%) 0.1 /100 WBC (0-0); RBC DIS.WIDTH-CV 14.7 % (11.8-14.6); RBC DIS.WIDTH-SD 48.5 % (39-53); RED BLOOD COUNT 3.41 M/uL (3.80-5.20); WHITE BLOOD COUNT 22.2 K/uL (4.1-10.2)
[2016-10-23 07:26] LABS: PLATELET COUNT 340 K/uL (156-360)
[2016-10-23 12:14] LABS: POINT-OF-CARE METER ID UU13113731
[2016-10-23 13:01] LABS: BASE EXCESS -1.9 mEq/L (-3 to +3); BICARBONATE 20.3 mEq/L (22-26); CARBOXY HGB 2.1 % (0-5); METHEMOGLOBIN 1.6 % (0-1.5); PCO2 26 mm Hg (35-45); PO2 73 mm Hg (80-100)
[2016-10-23 13:02] LABS: COMMENTS - BLOOD GASES +C; DEVICE PB840; FI02 40 %; MECHANICAL RATE 12 resp/min; MODE AC; PEEP 5 CM/H20; SITE RR +A; TIDAL VOLUME 400 ML; TOTAL RESP RATE 40 resp/min
[2016-10-23 18:11] LABS: POINT-OF-CARE METER ID UU13113803
[2016-10-24] VITALS (18 sets, daily range): BP systolic 88–136; BP diastolic 49–70
[2016-10-24 00:32] LABS: POINT-OF-CARE METER ID UU13113803
[2016-10-24 05:57] LABS: BASOPHIL COUNT 0.1 K/uL (0-0.1); EOSINOPHIL (%) 0.6 % (0-5); EOSINOPHIL COUNT 0.1 K/uL (0-0.3); HEMATOCRIT 30.4 % (36.0-46.0); IMMATURE GRANULOCYTE (%) 4.2 % (0.0-0.7); IMMATURE GRANULOCYTE COUNT 0.8 K/uL; INSTRUMENT ABS NEUTROPHIL CT 16.8 K/uL; MCH 29.8 PG (29.0-34.0); MCHC 32.2 G/DL (30.0-36.0); MCV 92.4 FL (83-99); MEAN PLAT.VOLUME 10.3 uM^3 (9.5-12.4); MONOCYTE (%) 3.2 % (3-12); MONOCYTE COUNT 0.6 K/uL (0-0.8); NEUTROPHIL (%) 86.6 % (45-76); NEUTROPHIL COUNT 16.8 K/uL (1.8-6.4); NRBC (%) 0.2 /100 WBC (0-0); PLATELET COUNT 359 K/uL (156-360); RBC DIS.WIDTH-CV 15.3 % (11.8-14.6); RED BLOOD COUNT 3.29 M/uL (3.80-5.20); WHITE BLOOD COUNT 19.4 K/uL (4.1-10.2)
[2016-10-24 06:38] LABS: ANION GAP 8 MEQ/L (2-14); CHLORIDE 110 MEQ/L (99-109); GFR ESTIMATE (CALCULATED) > 59 mL/min/; MAGNESIUM 1.9 mg/dl (1.3-2.7); POTASSIUM 4.1 MEQ/L (3.7-5.4); SAMPLE HEMOLYSIS CHECK 0; SAMPLE ICTERIC CHECK 0; SAMPLE LIPEMIA CHECK 0; SODIUM 140 MEQ/L (136-147); UREA NITROGEN (BUN) 12 mg/dL (9-23)
[2016-10-24 06:41] LABS: GLUCOSE 120 mg/dL (70-99)
[2016-10-24 17:58] LABS: POINT-OF-CARE METER ID UU13113803
[2016-10-24 23:49] LABS: POINT-OF-CARE METER ID UU13113803
[2016-10-25] VITALS (13 sets, daily range): BP systolic 95–137; BP diastolic 50–65
[2016-10-25 06:02] LABS: EOSINOPHIL (%) 0.9 % (0-5); EOSINOPHIL COUNT 0.1 K/uL (0-0.3); HEMATOCRIT 27.1 % (36.0-46.0); IMMATURE GRANULOCYTE (%) 1.9 % (0.0-0.7); IMMATURE GRANULOCYTE COUNT 0.3 K/uL; INSTRUMENT ABS NEUTROPHIL CT 13.5 K/uL; LYMPHOCYTE COUNT 0.8 K/uL (1.0-2.8); MCH 29.5 PG (29.0-34.0); MCHC 32.5 G/DL (30.0-36.0); MCV 90.9 FL (83-99); MEAN PLAT.VOLUME 10.4 uM^3 (9.5-12.4); MONOCYTE (%) 2.8 % (3-12); MONOCYTE COUNT 0.4 K/uL (0-0.8); NEUTROPHIL (%) 88.8 % (45-76); NEUTROPHIL COUNT 13.5 K/uL (1.8-6.4); PLATELET COUNT 437 K/uL (156-360); RBC DIS.WIDTH-CV 15.4 % (11.8-14.6); RBC DIS.WIDTH-SD 51.3 % (39-53); RED BLOOD COUNT 2.98 M/uL (3.80-5.20); WHITE BLOOD COUNT 15.1 K/uL (4.1-10.2)
[2016-10-25 06:14] LABS: POINT-OF-CARE METER ID UU13113731
[2016-10-25 06:49] LABS: ANION GAP 11 MEQ/L (2-14); CHLORIDE 110 MEQ/L (99-109); GFR ESTIMATE (CALCULATED) > 59 mL/min/; GLUCOSE 150 mg/dL (70-99); MAGNESIUM 1.7 mg/dl (1.3-2.7); POTASSIUM 3.7 MEQ/L (3.7-5.4); SAMPLE HEMOLYSIS CHECK 0; SAMPLE ICTERIC CHECK 0; SAMPLE LIPEMIA CHECK 0; SODIUM 139 MEQ/L (136-147); UREA NITROGEN (BUN) 13 mg/dL (9-23)
[2016-10-25 12:46] LABS: POINT-OF-CARE METER ID UU13113731
[2016-10-26] VITALS (10 sets, daily range): BP systolic 90–134; BP diastolic 44–75
[2016-10-26 00:59] LABS: POINT-OF-CARE METER ID UU13113731; POINT-OF-CARE USER ID PHATLC
[2016-10-26 05:39] LABS: POINT-OF-CARE METER ID UU13113731; POINT-OF-CARE USER ID PHATLC
[2016-10-26 05:58] LABS: BASOPHIL COUNT 0.1 K/uL (0-0.1); EOSINOPHIL COUNT 0.1 K/uL (0-0.3); HEMATOCRIT 31.1 % (36.0-46.0); IMMATURE GRANULOCYTE (%) 1.4 % (0.0-0.7); IMMATURE GRANULOCYTE COUNT 0.2 K/uL; INSTRUMENT ABS NEUTROPHIL CT 11.8 K/uL; MCH 29.2 PG (29.0-34.0); MCHC 31.5 G/DL (30.0-36.0); MCV 92.6 FL (83-99); MEAN PLAT.VOLUME 10.3 uM^3 (9.5-12.4); MONOCYTE (%) 3.1 % (3-12); MONOCYTE COUNT 0.4 K/uL (0-0.8); NEUTROPHIL (%) 86.8 % (45-76); NEUTROPHIL COUNT 11.8 K/uL (1.8-6.4); PLATELET COUNT 499 K/uL (156-360); RBC DIS.WIDTH-CV 15.6 % (11.8-14.6); RBC DIS.WIDTH-SD 53.1 % (39-53); RED BLOOD COUNT 3.36 M/uL (3.80-5.20); WHITE BLOOD COUNT 13.6 K/uL (4.1-10.2)
[2016-10-26 06:48] LABS: ANION GAP 11 MEQ/L (2-14); CHLORIDE 109 MEQ/L (99-109); GFR ESTIMATE (CALCULATED) > 59 mL/min/; GLUCOSE 113 mg/dL (70-99); MAGNESIUM 1.8 mg/dl (1.3-2.7); SAMPLE HEMOLYSIS CHECK 0; SAMPLE ICTERIC CHECK 0; SAMPLE LIPEMIA CHECK 0; SODIUM 141 MEQ/L (136-147); UREA NITROGEN (BUN) 13 mg/dL (9-23)
[2016-10-26 11:50] LABS: POINT-OF-CARE METER ID UU14162636
[2016-10-26 18:15] LABS: POINT-OF-CARE METER ID UU14162636
[2016-10-27] VITALS: BP 109/56
[2016-10-27 00:21] LABS: POINT-OF-CARE METER ID UU13113731; POINT-OF-CARE USER ID PHATLC
[2016-10-27 04:00] VITALS: BP 113/46
[2016-10-27 05:14] LABS: POINT-OF-CARE METER ID UU13113731; POINT-OF-CARE USER ID PHATLC
[2016-10-27 05:49] LABS: EOSINOPHIL (%) 1.2 % (0-5); EOSINOPHIL COUNT 0.2 K/uL (0-0.3); HEMATOCRIT 23.1 % (36.0-46.0); IMMATURE GRANULOCYTE (%) 1.2 % (0.0-0.7); IMMATURE GRANULOCYTE COUNT 0.2 K/uL; INSTRUMENT ABS NEUTROPHIL CT 11.7 K/uL; LYMPHOCYTE COUNT 1.3 K/uL (1.0-2.8); MCH 29.7 PG (29.0-34.0); MCHC 32.9 G/DL (30.0-36.0); MCV 90.2 FL (83-99); MEAN PLAT.VOLUME 10.2 uM^3 (9.5-12.4); MONOCYTE (%) 3.2 % (3-12); MONOCYTE COUNT 0.4 K/uL (0-0.8); NEUTROPHIL COUNT 11.7 K/uL (1.8-6.4); PLATELET COUNT 601 K/uL (156-360); RBC DIS.WIDTH-CV 15.4 % (11.8-14.6); RBC DIS.WIDTH-SD 50.7 % (39-53); WHITE BLOOD COUNT 13.8 K/uL (4.1-10.2)
[2016-10-27 05:52] LABS: RED BLOOD COUNT 2.56 M/uL (3.80-5.20)
[2016-10-27 05:59] LABS: ANION GAP 8 MEQ/L (2-14); CHLORIDE 110 MEQ/L (99-109); GFR ESTIMATE (CALCULATED) > 59 mL/min/; GLUCOSE 124 mg/dL (70-99); MAGNESIUM 1.6 mg/dl (1.3-2.7); POTASSIUM 3.5 MEQ/L (3.7-5.4); SAMPLE HEMOLYSIS CHECK 0; SAMPLE ICTERIC CHECK 0; SAMPLE LIPEMIA CHECK 0; SODIUM 139 MEQ/L (136-147); UREA NITROGEN (BUN) 11 mg/dL (9-23)
[2016-10-27 08:00] VITALS: BP 162/74
[2016-10-27 09:00] VITALS: BP 162/74
[2016-10-27 12:29] LABS: POINT-OF-CARE METER ID UU13113803
[2016-10-27 16:00] VITALS: BP 129/63
[2016-10-27 17:00] VITALS: BP 151/75
[2016-10-27 18:12] LABS: POINT-OF-CARE METER ID UU14174217
[2016-10-27 23:37] LABS: POINT-OF-CARE METER ID UU14162636
[2016-10-28] VITALS: BP 114/53
[2016-10-28 04:00] VITALS: BP 111/56
[2016-10-28 05:48] LABS: POINT-OF-CARE METER ID UU14162636
[2016-10-28 05:55] LABS: BASOPHIL COUNT 0.1 K/uL (0-0.1); EOSINOPHIL COUNT 0.3 K/uL (0-0.3); HEMATOCRIT 22.4 % (36.0-46.0); IMMATURE GRANULOCYTE (%) 1.5 % (0.0-0.7); IMMATURE GRANULOCYTE COUNT 0.2 K/uL; INSTRUMENT ABS NEUTROPHIL CT 10.7 K/uL; LYMPHOCYTE COUNT 1.6 K/uL (1.0-2.8); MCH 29.3 PG (29.0-34.0); MCHC 32.1 G/DL (30.0-36.0); MCV 91.1 FL (83-99); MONOCYTE (%) 3.3 % (3-12); MONOCYTE COUNT 0.4 K/uL (0-0.8); NEUTROPHIL (%) 80.9 % (45-76); NEUTROPHIL COUNT 10.7 K/uL (1.8-6.4); NRBC (%) 0.2 /100 WBC (0-0); PLATELET COUNT 682 K/uL (156-360); RBC DIS.WIDTH-CV 15.6 % (11.8-14.6); RBC DIS.WIDTH-SD 52.1 % (39-53); RED BLOOD COUNT 2.46 M/uL (3.80-5.20); WHITE BLOOD COUNT 13.2 K/uL (4.1-10.2)
[2016-10-28 06:10] LABS: CHLORIDE 111 MEQ/L (99-109); POTASSIUM 3.7 MEQ/L (3.7-5.4); SODIUM 140 MEQ/L (136-147)
[2016-10-28 06:54] LABS: ANION GAP 7 MEQ/L (2-14); GFR ESTIMATE (CALCULATED) > 59 mL/min/; MAGNESIUM 1.6 mg/dl (1.3-2.7); SAMPLE HEMOLYSIS CHECK 0; SAMPLE ICTERIC CHECK 0; SAMPLE LIPEMIA CHECK 0; UREA NITROGEN (BUN) 12 mg/dL (9-23)
[2016-10-28 07:02] LABS: GLUCOSE 84 mg/dL (70-99)
[2016-10-28 09:57] VITALS: BP 93/40
[2016-10-28 12:43] LABS: VANCOMYCIN, TROUGH 5.7 MCG/ML (10-20)
[2016-10-28 13:00] LABS: POINT-OF-CARE METER ID UU14174217
[2016-10-28 17:38] LABS: POINT-OF-CARE METER ID UU13113731
[2016-10-28 18:00] VITALS: BP 135/70
[2016-10-28 19:03] LABS: ALKALINE PHOSPHATASE 95 IU/L (3-129); DIRECT BILIRUBIN 0.3 mg/dL (0.0-0.3); TOTAL BILIRUBIN 0.6 MG/DL (0.0-1.0)
[2016-10-29 00:37] LABS: POINT-OF-CARE METER ID UU13113731
[2016-10-29 05:05] LABS: BASOPHIL COUNT 0.1 K/uL (0-0.1); EOSINOPHIL (%) 1.2 % (0-5); EOSINOPHIL COUNT 0.2 K/uL (0-0.3); HEMATOCRIT 24.5 % (36.0-46.0); IMMATURE GRANULOCYTE (%) 1.8 % (0.0-0.7); IMMATURE GRANULOCYTE COUNT 0.3 K/uL; INSTRUMENT ABS NEUTROPHIL CT 11.3 K/uL; LYMPHOCYTE COUNT 1.4 K/uL (1.0-2.8); MCH 29.6 PG (29.0-34.0); MCHC 32.2 G/DL (30.0-36.0); MCV 91.8 FL (83-99); MEAN PLAT.VOLUME 9.7 uM^3 (9.5-12.4); MONOCYTE (%) 3.2 % (3-12); MONOCYTE COUNT 0.4 K/uL (0-0.8); NEUTROPHIL (%) 83.1 % (45-76); NEUTROPHIL COUNT 11.3 K/uL (1.8-6.4); NRBC (%) 0.1 /100 WBC (0-0); PLATELET COUNT 832 K/uL (156-360); RBC DIS.WIDTH-CV 15.7 % (11.8-14.6); RBC DIS.WIDTH-SD 51.9 % (39-53); RED BLOOD COUNT 2.67 M/uL (3.80-5.20); WHITE BLOOD COUNT 13.6 K/uL (4.1-10.2)
[2016-10-29 05:20] LABS: CHLORIDE 116 mEq/L (99-109); POTASSIUM 3.4 mEq/L (3.7-5.4); SODIUM 142 mEq/L (136-147)
[2016-10-29 05:21] LABS: MAGNESIUM 1.4 mg/dL (1.3-2.7)
[2016-10-29 05:24] LABS: ANION GAP 6 MEQ/L (2-14)
[2016-10-29 05:26] LABS: GFR ESTIMATE (CALCULATED) > 59 mL/min/
[2016-10-29 05:27] LABS: UREA NITROGEN (BUN) 16 mg/dL (9-23)
[2016-10-29 05:29] LABS: GLUCOSE 201 mg/dL (70-99)
[2016-10-29 06:21] LABS: POINT-OF-CARE METER ID UU14174217
[2016-10-29 17:26] LABS: POINT-OF-CARE METER ID UU14174217
[2016-10-30 01:30] VITALS: BP 85/42
[2016-10-30 06:18] LABS: POINT-OF-CARE METER ID UU13113803
[2016-10-30 07:35] LABS: EOSINOPHIL (%) 1.7 % (0-5); EOSINOPHIL COUNT 0.2 K/uL (0-0.3); HEMATOCRIT 22.4 % (36.0-46.0); IMMATURE GRANULOCYTE (%) 1.9 % (0.0-0.7); IMMATURE GRANULOCYTE COUNT 0.2 K/uL; LYMPHOCYTE COUNT 1.3 K/uL (1.0-2.8); MCH 29.2 PG (29.0-34.0); MCHC 31.7 G/DL (30.0-36.0); MCV 92.2 FL (83-99); MEAN PLAT.VOLUME 9.8 uM^3 (9.5-12.4); MONOCYTE (%) 3.9 % (3-12); MONOCYTE COUNT 0.5 K/uL (0-0.8); NEUTROPHIL (%) 81.4 % (45-76); NRBC (%) 0.7 /100 WBC (0-0); PLATELET COUNT 861 K/uL (156-360); RBC DIS.WIDTH-CV 15.9 % (11.8-14.6); RBC DIS.WIDTH-SD 52.7 % (39-53); RED BLOOD COUNT 2.43 M/uL (3.80-5.20); WHITE BLOOD COUNT 12.3 K/uL (4.1-10.2)
[2016-10-30 07:46] LABS: ANION GAP 8 MEQ/L (2-14); CHLORIDE 113 MEQ/L (99-109); GFR ESTIMATE (CALCULATED) > 59 mL/min/; GLUCOSE 146 mg/dL (70-99); MAGNESIUM 1.6 mg/dl (1.3-2.7); SAMPLE HEMOLYSIS CHECK 1; SAMPLE ICTERIC CHECK 0; SAMPLE LIPEMIA CHECK 0; SODIUM 142 MEQ/L (136-147); UREA NITROGEN (BUN) 15 mg/dL (9-23)
[2016-10-30 07:53] LABS: POTASSIUM 3.5 MEQ/L (3.7-5.4)
[2016-10-30 19:00] VITALS: BP 94/52
[2016-10-30 22:00] VITALS: BP 130/64
[2016-10-31 05:43] LABS: EOSINOPHIL (%) 2.4 % (0-5); EOSINOPHIL COUNT 0.3 K/uL (0-0.3); HEMATOCRIT 22.3 % (36.0-46.0); IMMATURE GRANULOCYTE (%) 1.8 % (0.0-0.7); IMMATURE GRANULOCYTE COUNT 0.2 K/uL; INSTRUMENT ABS NEUTROPHIL CT 8.8 K/uL; LYMPHOCYTE COUNT 1.4 K/uL (1.0-2.8); MCH 29.2 PG (29.0-34.0); MCHC 31.4 G/DL (30.0-36.0); MCV 92.9 FL (83-99); MEAN PLAT.VOLUME 9.5 uM^3 (9.5-12.4); MONOCYTE (%) 3.5 % (3-12); MONOCYTE COUNT 0.4 K/uL (0-0.8); NEUTROPHIL (%) 79.4 % (45-76); NEUTROPHIL COUNT 8.8 K/uL (1.8-6.4); NRBC (%) 1.3 /100 WBC (0-0); PLATELET COUNT 821 K/uL (156-360); RBC DIS.WIDTH-CV 16.2 % (11.8-14.6); RBC DIS.WIDTH-SD 55.4 % (39-53); WHITE BLOOD COUNT 11.1 K/uL (4.1-10.2)
[2016-10-31 06:56] LABS: ANION GAP 10 MEQ/L (2-14); CHLORIDE 112 MEQ/L (99-109); GFR ESTIMATE (CALCULATED) > 59 mL/min/; GLUCOSE 161 mg/dL (70-99); POTASSIUM 3.8 MEQ/L (3.7-5.4); SAMPLE HEMOLYSIS CHECK 0; SAMPLE ICTERIC CHECK 0; SAMPLE LIPEMIA CHECK 0; SODIUM 143 MEQ/L (136-147); UREA NITROGEN (BUN) 12 mg/dL (9-23)
[2016-10-31 09:00] VITALS: BP 108/48
[2016-10-31 14:00] VITALS: BP 89/50
[2016-10-31 20:00] VITALS: BP 111/61
[2016-11-01 00:44] LABS: BASE EXCESS -1.6 mEq/L (-3 to +3); BICARBONATE 21.1 mEq/L (22-26); CARBOXY HGB 2.4 % (0-5); COMMENTS - BLOOD GASES C+; DEVICE VENT; METHEMOGLOBIN 1.5 % (0-1.5); PCO2 27 mm Hg (35-45); PO2 61 mm Hg (80-100); SITE RR ALINE
[2016-11-01 00:45] LABS: FI02 30 %; INSPIRATION TIME 0.6 seconds; MECHANICAL RATE 20 resp/min; MODE A/C VC+; PEEP 5 CM/H20; TIDAL VOLUME 400 ML; TOTAL RESP RATE 29 resp/min
[2016-11-01 02:01] LABS: C DIFF TOXIN NEGATIVE (NEGATIVE)
[2016-11-01 02:16] LABS: PROBE CHECK PASS; SPECIMEN PROCESSING CONTROL PASS
[2016-11-01 06:29] LABS: EOSINOPHIL (%) 2.9 % (0-5); EOSINOPHIL COUNT 0.3 K/uL (0-0.3); HEMATOCRIT 20.5 % (36.0-46.0); IMMATURE GRANULOCYTE (%) 3.8 % (0.0-0.7); IMMATURE GRANULOCYTE COUNT 0.4 K/uL; INSTRUMENT ABS NEUTROPHIL CT 6.9 K/uL; LYMPHOCYTE COUNT 1.8 K/uL (1.0-2.8); MCH 29.4 PG (29.0-34.0); MCHC 31.7 G/DL (30.0-36.0); MCV 92.8 FL (83-99); MEAN PLAT.VOLUME 9.4 uM^3 (9.5-12.4); MONOCYTE (%) 4.6 % (3-12); MONOCYTE COUNT 0.5 K/uL (0-0.8); NEUTROPHIL COUNT 6.9 K/uL (1.8-6.4); NRBC (%) 1.6 /100 WBC (0-0); PLATELET COUNT 766 K/uL (156-360); RBC DIS.WIDTH-CV 16.2 % (11.8-14.6); RBC DIS.WIDTH-SD 53.6 % (39-53); RED BLOOD COUNT 2.21 M/uL (3.80-5.20); WHITE BLOOD COUNT 9.9 K/uL (4.1-10.2)
[2016-11-01 06:43] LABS: INTER. NORMALIZED RATIO 1.1; PROTHROMBIN TIME 10.9 (9.2-11.2); PTT 26.5 (25-32)
[2016-11-01 06:46] LABS: ANION GAP 10 MEQ/L (2-14); CHLORIDE 113 MEQ/L (99-109); GFR ESTIMATE (CALCULATED) > 59 mL/min/; GLUCOSE 125 mg/dL (70-99); MAGNESIUM 1.8 mg/dl (1.3-2.7); POTASSIUM 3.7 MEQ/L (3.7-5.4); SAMPLE HEMOLYSIS CHECK 0; SAMPLE ICTERIC CHECK 0; SAMPLE LIPEMIA CHECK 0; SODIUM 144 MEQ/L (136-147); TRIGLYCERIDES 151 MG/DL (Normal: <150); UREA NITROGEN (BUN) 14 mg/dL (9-23)
[2016-11-01 11:03] LABS: TYPE OF FLUID PLEURAL
[2016-11-01 11:50] VITALS: BP 98/53
[2016-11-01 12:09] LABS: BODY FLUID EOSINOPHILS 1 % (0-25); BODY FLUID RBC'S 3000 /MM^3 (0-100); BODY FLUID WBC'S 1389 /MM^3 (0-500); MONONUCLEAR WBC'S 53 %; POLYNUCLEAR WBC'S 46 % (0-25)
[2016-11-01 12:11] LABS: BODY FLUID LDH 128 IU/L; BODY FLUID PROTEIN < 3.0 G/DL
[2016-11-01 12:48] LABS: TYPE OF FLUID PLEURAL
[2016-11-01 13:49] LABS: BODY FLUID LDH 129 IU/L
[2016-11-01 13:50] LABS: BODY FLUID PROTEIN < 3 G/DL
[2016-11-01 14:08] LABS: BODY FLUID EOSINOPHILS 1 % (0-25); BODY FLUID RBC'S 1000 /MM^3 (0-100); BODY FLUID WBC'S 1734 /MM^3 (0-500); MONONUCLEAR WBC'S 64 %; POLYNUCLEAR WBC'S 35 % (0-25)
[2016-11-01 22:00] VITALS: BP 103/52
[2016-11-02] VITALS (9 sets, daily range): BP systolic 79–877; BP diastolic 35–74
[2016-11-02 06:04] LABS: MCH 28.7 PG (29.0-34.0); MCHC 30.5 G/DL (30.0-36.0); MCV 94.2 FL (83-99); MEAN PLAT.VOLUME 9.3 uM^3 (9.5-12.4); NRBC (%) 1.6 /100 WBC (0-0); PLATELET COUNT 783 K/uL (156-360); RBC DIS.WIDTH-CV 16.4 % (11.8-14.6); RBC DIS.WIDTH-SD 55.5 % (39-53); RED BLOOD COUNT 2.23 M/uL (3.80-5.20); WHITE BLOOD COUNT 12.2 K/uL (4.1-10.2)
[2016-11-02 06:34] LABS: ABS NEUTROPHIL COUNT 10.2; ATYPICAL LYMPHOCYTE 0.9 %; BASOPHILS 1.7 %; EOSINOPHIL ABS CT 0.2; EOSINOPHILS 1.7 % (0-5.0); HEMATOLOGY COMMENT 1 SN; HYPOCHROMASIA 2+; LYMPHOCYTES 7.8 % (15.0-45.0); METAMYELOCYTES 0.9 %; MYELOCYTES 0.9 %; PLAT.SUFFICIENCY INCREASED; POLYCHROMASIA 1+; SEG.NEUTROPHILS 83.5 % (46.0-76.0); TOX.VACUOLIZATION 1+; TOXIC GRANULATION 1+
[2016-11-02 06:39] LABS: ANION GAP 9 MEQ/L (2-14); CHLORIDE 113 MEQ/L (99-109); GFR ESTIMATE (CALCULATED) > 59 mL/min/; GLUCOSE 114 mg/dL (70-99); POTASSIUM 4.2 MEQ/L (3.7-5.4); SAMPLE HEMOLYSIS CHECK 0; SAMPLE ICTERIC CHECK 0; SAMPLE LIPEMIA CHECK 0; SODIUM 143 MEQ/L (136-147); UREA NITROGEN (BUN) 14 mg/dL (9-23)
[2016-11-02 06:42] LABS: MAGNESIUM 2.2 mg/dl (1.3-2.7)
[2016-11-02 20:27] LABS: HEMATOCRIT 30.4 % (36.0-46.0); MCHC 32.9 G/DL (30.0-36.0); MCV 88.1 FL (83-99); NRBC (%) 1.5 /100 WBC (0-0); PLATELET COUNT 794 K/uL (156-360); RBC DIS.WIDTH-CV 17.3 % (11.8-14.6); RED BLOOD COUNT 3.45 M/uL (3.80-5.20); WHITE BLOOD COUNT 18.1 K/uL (4.1-10.2)
[2016-11-03 03:00] VITALS: BP 125/58
[2016-11-03 05:39] LABS: BASOPHIL COUNT 0.1 K/uL (0-0.1); EOSINOPHIL (%) 2.9 % (0-5); EOSINOPHIL COUNT 0.5 K/uL (0-0.3); HEMATOCRIT 27.3 % (36.0-46.0); IMMATURE GRANULOCYTE (%) 4.3 % (0.0-0.7); IMMATURE GRANULOCYTE COUNT 0.8 K/uL; INSTRUMENT ABS NEUTROPHIL CT 14.2 K/uL; LYMPHOCYTE COUNT 1.6 K/uL (1.0-2.8); MCH 28.3 PG (29.0-34.0); MCHC 31.9 G/DL (30.0-36.0); MCV 88.9 FL (83-99); MEAN PLAT.VOLUME 9.1 uM^3 (9.5-12.4); MONOCYTE (%) 5.8 % (3-12); MONOCYTE COUNT 1.1 K/uL (0-0.8); NEUTROPHIL (%) 77.8 % (45-76); NEUTROPHIL COUNT 14.2 K/uL (1.8-6.4); NRBC (%) 0.6 /100 WBC (0-0); PLATELET COUNT 725 K/uL (156-360); RBC DIS.WIDTH-CV 17.6 % (11.8-14.6); RED BLOOD COUNT 3.07 M/uL (3.80-5.20); WHITE BLOOD COUNT 18.2 K/uL (4.1-10.2)
[2016-11-03 06:02] LABS: ANION GAP 6 MEQ/L (2-14); CHLORIDE 112 MEQ/L (99-109); GFR ESTIMATE (CALCULATED) > 59 mL/min/; GLUCOSE 103 mg/dL (70-99); POTASSIUM 4.2 MEQ/L (3.7-5.4); SAMPLE HEMOLYSIS CHECK 0; SAMPLE ICTERIC CHECK 0; SAMPLE LIPEMIA CHECK 0; SODIUM 140 MEQ/L (136-147); UREA NITROGEN (BUN) 13 mg/dL (9-23)
[2016-11-03 10:00] VITALS: BP 116/60
[2016-11-03 11:00] VITALS: BP 116/60
[2016-11-03 18:00] VITALS: BP 109/55
[2016-11-03 18:36] LABS: BASE EXCESS -0.9 mEq/L (-3 to +3); BICARBONATE 23.5 mEq/L (22-26); CARBOXY HGB 2.2 % (0-5); COMMENTS - BLOOD GASES NAC+; METHEMOGLOBIN 2.2 % (0-1.5); PCO2 37 mm Hg (35-45); PO2 99 mm Hg (80-100); SITE ALINE; pH 7.41 (7.35-7.45)
[2016-11-03 18:37] LABS: DEVICE PB 840; FI02 65 %; INSPIRATION TIME 0.8 seconds; MECHANICAL RATE 16 resp/min; MODE ACPC; PEEP 10 CM/H20; PRESSURE CONTROL VENTILATION 25 CM H20; TOTAL RESP RATE 25 resp/min
[2016-11-03 19:00] VITALS: BP 109/55
[2016-11-03 19:29] LABS: UR CREATININE CONCENTRATION 37.9 MG/DL
[2016-11-03 20:00] VITALS: BP 111/58
[2016-11-04] VITALS (11 sets, daily range): BP systolic 99–142; BP diastolic 44–63
[2016-11-04 06:03] LABS: BASOPHIL COUNT 0.1 K/uL (0-0.1); EOSINOPHIL (%) 0.9 % (0-5); EOSINOPHIL COUNT 0.2 K/uL (0-0.3); HEMATOCRIT 28.6 % (36.0-46.0); IMMATURE GRANULOCYTE (%) 3.6 % (0.0-0.7); IMMATURE GRANULOCYTE COUNT 0.7 K/uL; INSTRUMENT ABS NEUTROPHIL CT 15.2 K/uL; LYMPHOCYTE COUNT 1.4 K/uL (1.0-2.8); MCH 28.8 PG (29.0-34.0); MCHC 31.8 G/DL (30.0-36.0); MCV 90.5 FL (83-99); MEAN PLAT.VOLUME 9.3 uM^3 (9.5-12.4); MONOCYTE COUNT 0.9 K/uL (0-0.8); NEUTROPHIL (%) 82.3 % (45-76); NEUTROPHIL COUNT 15.2 K/uL (1.8-6.4); NRBC (%) 0.1 /100 WBC (0-0); PLATELET COUNT 667 K/uL (156-360); RBC DIS.WIDTH-CV 16.7 % (11.8-14.6); RBC DIS.WIDTH-SD 54.3 % (39-53); RED BLOOD COUNT 3.16 M/uL (3.80-5.20); WHITE BLOOD COUNT 18.5 K/uL (4.1-10.2)
[2016-11-04 06:29] LABS: ANION GAP 8 MEQ/L (2-14); CHLORIDE 112 MEQ/L (99-109); GFR ESTIMATE (CALCULATED) > 59 mL/min/; GLUCOSE 115 mg/dL (70-99); MAGNESIUM 1.9 mg/dl (1.3-2.7); POTASSIUM 4.8 MEQ/L (3.7-5.4); SAMPLE HEMOLYSIS CHECK 0; SAMPLE ICTERIC CHECK 0; SAMPLE LIPEMIA CHECK 0; SODIUM 144 MEQ/L (136-147); UREA NITROGEN (BUN) 15 mg/dL (9-23)
[2016-11-04 12:19] LABS: Estimated Average Glucose 120 mg/dL (70-123); HEMOGLOBIN A1c (GLYCOHEMOGLOB) 5.8 % HGB (Below 5.7)
[2016-11-04 12:58] LABS: GLOBULINS 3.2 G/DL (2.3-3.5)
[2016-11-04 12:58] LABS: C3 COMPLEMENT 154 MG/DL (58-170); C4 COMPLEMENT 29 MG/DL (10-40)
[2016-11-04 13:28] LABS: HBSG INDEX 0.21
[2016-11-05] VITALS (22 sets, daily range): BP systolic 89–155; BP diastolic 40–82
[2016-11-05 05:58] LABS: BASOPHIL COUNT 0.1 K/uL (0-0.1); EOSINOPHIL (%) 1.6 % (0-5); EOSINOPHIL COUNT 0.3 K/uL (0-0.3); HEMATOCRIT 29.3 % (36.0-46.0); IMMATURE GRANULOCYTE (%) 2.4 % (0.0-0.7); IMMATURE GRANULOCYTE COUNT 0.5 K/uL; INSTRUMENT ABS NEUTROPHIL CT 15.5 K/uL; LYMPHOCYTE COUNT 1.4 K/uL (1.0-2.8); MCH 27.6 PG (29.0-34.0); MCHC 30.4 G/DL (30.0-36.0); MEAN PLAT.VOLUME 9.2 uM^3 (9.5-12.4); MONOCYTE (%) 7.5 % (3-12); MONOCYTE COUNT 1.4 K/uL (0-0.8); NEUTROPHIL COUNT 15.5 K/uL (1.8-6.4); NRBC (%) 0.2 /100 WBC (0-0); PLATELET COUNT 625 K/uL (156-360); RBC DIS.WIDTH-CV 15.9 % (11.8-14.6); RBC DIS.WIDTH-SD 52.8 % (39-53); RED BLOOD COUNT 3.22 M/uL (3.80-5.20); WHITE BLOOD COUNT 19.2 K/uL (4.1-10.2)
[2016-11-05 06:30] LABS: ANION GAP 12 MEQ/L (2-14); CHLORIDE 106 MEQ/L (99-109); GFR ESTIMATE (CALCULATED) > 59 mL/min/; SAMPLE HEMOLYSIS CHECK 0; SAMPLE ICTERIC CHECK 0; SAMPLE LIPEMIA CHECK 0; SODIUM 143 MEQ/L (136-147); UREA NITROGEN (BUN) 17 mg/dL (9-23)
[2016-11-05 06:31] LABS: GLUCOSE 79 mg/dL (70-99); MAGNESIUM 2.2 mg/dl (1.3-2.7); POTASSIUM 3.8 MEQ/L (3.7-5.4)
[2016-11-05 09:15] LABS: ALBUMIN 2.86 G/DL (3.6-4.9); ALBUMIN PERCENT 48.5 %; ALPHA-1 PERCENT 6.7 %; ALPHA-2 GLOBULIN 0.84 G/DL (0.45-0.85); ALPHA-2 PERCENT 14.2 %; BETA PERCENT 9.9 %; GAMMA PERCENT 20.7 %
[2016-11-05 13:12] LABS: IFE GEL NO. 43-5
[2016-11-05 18:06] LABS: ADD MIUA? YES; BILIRUBIN NEGATIVE; BLOOD LARGE; COLOR AMBER ((YELLOW)); GLUCOSE (STRIP) NEGATIVE; KETONES NEGATIVE; LEUKOCYTES NEGATIVE; NITRITE NEGATIVE; PROTEIN (STRIP) 100; UROBILINOGEN 0.2 MG/DL (0.2-1.0)
[2016-11-05 18:28] LABS: URINE TOTAL PROTEIN 168 MG/DL (0-10)
[2016-11-05 18:46] LABS: BACTERIA 1+ /HPF; EPITHELIAL CELLS RARE /HPF; MUCUS NONE SEEN /LPF; RED BLOOD CELLS TNTC /HPF (0-5)
[2016-11-06] VITALS (25 sets, daily range): BP systolic 92–171; BP diastolic 47–94
[2016-11-06 05:27] LABS: HEMATOCRIT 27.3 % (36.0-46.0); MCH 28.6 PG (29.0-34.0); MCHC 31.9 G/DL (30.0-36.0); MCV 89.8 FL (83-99); MEAN PLAT.VOLUME 8.9 uM^3 (9.5-12.4); PLATELET COUNT 538 K/uL (156-360); RBC DIS.WIDTH-CV 15.2 % (11.8-14.6); RBC DIS.WIDTH-SD 49.8 % (39-53); RED BLOOD COUNT 3.04 M/uL (3.80-5.20); WHITE BLOOD COUNT 15.7 K/uL (4.1-10.2)
[2016-11-06 05:32] LABS: BASOPHIL COUNT 0.1 K/uL (0-0.1); EOSINOPHIL (%) 5.4 % (0-5); EOSINOPHIL COUNT 0.8 K/uL (0-0.3); IMMATURE GRANULOCYTE (%) 3.2 % (0.0-0.7); IMMATURE GRANULOCYTE COUNT 0.5 K/uL; INSTRUMENT ABS NEUTROPHIL CT 10.5 K/uL; LYMPHOCYTE COUNT 1.5 K/uL (1.0-2.8); MONOCYTE (%) 8.3 % (3-12); MONOCYTE COUNT 1.2 K/uL (0-0.8); NEUTROPHIL (%) 71.8 % (45-76); NEUTROPHIL COUNT 10.5 K/uL (1.8-6.4)
[2016-11-06 05:51] LABS: ANION GAP 10 MEQ/L (2-14); CHLORIDE 107 MEQ/L (99-109); GFR ESTIMATE (CALCULATED) > 59 mL/min/; GLUCOSE 79 mg/dL (70-99); MAGNESIUM 1.9 mg/dl (1.3-2.7); POTASSIUM 3.6 MEQ/L (3.7-5.4); SAMPLE HEMOLYSIS CHECK 0; SAMPLE ICTERIC CHECK 0; SAMPLE LIPEMIA CHECK 0; SODIUM 143 MEQ/L (136-147); UREA NITROGEN (BUN) 18 mg/dL (9-23)
[2016-11-07] VITALS (24 sets, daily range): BP systolic 92–163; BP diastolic 41–83
[2016-11-07 06:06] LABS: ADD MIUA? YES; BILIRUBIN NEGATIVE; BLOOD MODERATE; GLUCOSE (STRIP) NEGATIVE; KETONES NEGATIVE; LEUKOCYTES TRACE; NITRITE NEGATIVE; PROTEIN (STRIP) 30; SPECIFIC GRAVITY 1.013 (1.000-1.030); UROBILINOGEN 0.2 MG/DL (0.2-1.0)
[2016-11-07 06:20] LABS: COLOR RED ((YELLOW))
[2016-11-07 06:44] LABS: BASOPHIL COUNT 0.1 K/uL (0-0.1); EOSINOPHIL (%) 3.3 % (0-5); EOSINOPHIL COUNT 0.6 K/uL (0-0.3); HEMATOCRIT 26.1 % (36.0-46.0); IMMATURE GRANULOCYTE (%) 3.3 % (0.0-0.7); IMMATURE GRANULOCYTE COUNT 0.6 K/uL; INSTRUMENT ABS NEUTROPHIL CT 14.2 K/uL; LYMPHOCYTE COUNT 1.4 K/uL (1.0-2.8); MCHC 31.4 G/DL (30.0-36.0); MCV 92.2 FL (83-99); MEAN PLAT.VOLUME 8.9 uM^3 (9.5-12.4); MONOCYTE (%) 7.3 % (3-12); MONOCYTE COUNT 1.3 K/uL (0-0.8); NEUTROPHIL (%) 77.8 % (45-76); NEUTROPHIL COUNT 14.2 K/uL (1.8-6.4); PLATELET COUNT 445 K/uL (156-360); RBC DIS.WIDTH-CV 15.1 % (11.8-14.6); RED BLOOD COUNT 2.83 M/uL (3.80-5.20); WHITE BLOOD COUNT 18.3 K/uL (4.1-10.2)
[2016-11-07 07:12] LABS: ALKALINE PHOSPHATASE 114 IU/L (3-129); ANION GAP 9 MEQ/L (2-14); CHLORIDE 107 MEQ/L (99-109); DIRECT BILIRUBIN 0.5 mg/dL (0.0-0.3); GFR ESTIMATE (CALCULATED) > 59 mL/min/; MAGNESIUM 2.1 mg/dl (1.3-2.7); POTASSIUM 4.1 MEQ/L (3.7-5.4); SAMPLE HEMOLYSIS CHECK 0; SAMPLE ICTERIC CHECK 0; SAMPLE LIPEMIA CHECK 0; SODIUM 144 MEQ/L (136-147); TOTAL BILIRUBIN 0.9 MG/DL (0.0-1.0); UREA NITROGEN (BUN) 15 mg/dL (9-23)
[2016-11-07 07:18] LABS: GLUCOSE 111 mg/dL (70-99)
[2016-11-07 07:25] LABS: INTER. NORMALIZED RATIO 1.1; PROTHROMBIN TIME 11.7 (9.2-11.2); PTT 26.8 (25-32)
[2016-11-07 08:12] LABS: BACTERIA NONE SEEN /HPF; CALCIUM OXALATE CRYSTALS 3+ /HPF; EPITHELIAL CELLS NONE SEEN /HPF; HYALINE CASTS 15-20 /LPF; MUCUS 1+ /LPF; RED BLOOD CELLS TNTC /HPF (0-5); WHITE BLOOD CELLS 0-5 /HPF (0-5)
[2016-11-07 23:16] LABS: Neutrophil Cytoplasmic Aby Negative (Negative)
[2016-11-08] VITALS (28 sets, daily range): BP systolic 81–170; BP diastolic 39–99
[2016-11-08 04:29] LABS: BASE EXCESS 7.6 mEq/L (-3 to +3); CARBOXY HGB 2.1 % (0-5); COMMENTS - BLOOD GASES C+; METHEMOGLOBIN 1.5 % (0-1.5); PCO2 38 mm Hg (35-45); PO2 63 mm Hg (80-100); SITE RR; pH 7.52 (7.35-7.45)
[2016-11-08 04:30] LABS: DEVICE VENT; FI02 65 %; INSPIRATION TIME 0.8 seconds; MECHANICAL RATE 16 resp/min; MODE AC/PC; PEEP 10 CM/H20; PRESSURE CONTROL VENTILATION 25 CM H20; TOTAL RESP RATE 43 resp/min
[2016-11-08 06:16] LABS: ANION GAP 8 MEQ/L (2-14); CHLORIDE 103 MEQ/L (99-109); GFR ESTIMATE (CALCULATED) > 59 mL/min/; GLUCOSE 104 mg/dL (70-99); MAGNESIUM 1.9 mg/dl (1.3-2.7); POTASSIUM 4.1 MEQ/L (3.7-5.4); SAMPLE HEMOLYSIS CHECK 0; SAMPLE ICTERIC CHECK 0; SAMPLE LIPEMIA CHECK 0; SODIUM 140 MEQ/L (136-147); UREA NITROGEN (BUN) 13 mg/dL (9-23)
[2016-11-08 06:25] LABS: HEMATOCRIT 27.9 % (36.0-46.0); MCH 28.1 PG (29.0-34.0); MCHC 31.2 G/DL (30.0-36.0); MEAN PLAT.VOLUME 9.4 uM^3 (9.5-12.4); NRBC (%) 0.1 /100 WBC (0-0); PLATELET COUNT 502 K/uL (156-360); RBC DIS.WIDTH-CV 14.8 % (11.8-14.6)
[2016-11-08 06:43] LABS: WHITE BLOOD COUNT 25.8 K/uL (4.1-10.2)
[2016-11-08 06:50] LABS: BASOPHIL COUNT 0.1 K/uL (0-0.1); EOSINOPHIL (%) 2.2 % (0-5); EOSINOPHIL COUNT 0.6 K/uL (0-0.3); HEMATOLOGY COMMENT 1 SMEAR COMPATIBLE; IMMATURE GRANULOCYTE (%) 2.7 % (0.0-0.7); IMMATURE GRANULOCYTE COUNT 0.7 K/uL; LYMPHOCYTE COUNT 1.4 K/uL (1.0-2.8); MONOCYTE (%) 4.1 % (3-12); MONOCYTE COUNT 1.1 K/uL (0-0.8); NEUTROPHIL (%) 85.2 % (45-76)
[2016-11-08 16:05] LABS: URINE GEL NUMBER 47-4
[2016-11-08 17:53] LABS: BASE EXCESS 0.8 mEq/L (-3 to +3); BICARBONATE 28.7 mEq/L (22-26); CARBOXY HGB 2.3 % (0-5); METHEMOGLOBIN 1.9 % (0-1.5)
[2016-11-08 17:54] LABS: COMMENTS - BLOOD GASES A+C+; DEVICE 840 PB; FI02 100 %; MECHANICAL RATE 24 resp/min; MODE AC; PCO2 64 mm Hg (35-45); PEEP 12 CM/H20; PO2 115 mm Hg (80-100); SITE LR; TIDAL VOLUME 350 ML; TOTAL RESP RATE 24 resp/min; pH 7.26 (7.35-7.45)
[2016-11-08 19:43] LABS: BASE EXCESS 2.1 mEq/L (-3 to +3); BICARBONATE 28.2 mEq/L (22-26); CARBOXY HGB 2.4 % (0-5); COMMENTS - BLOOD GASES C+; DEVICE VENT; FI02 100 %; MECHANICAL RATE 28 resp/min; METHEMOGLOBIN 1.9 % (0-1.5); MODE ACVC; PCO2 51 mm Hg (35-45); PO2 81 mm Hg (80-100); SITE RR; TOTAL RESP RATE 39 resp/min; pH 7.35 (7.35-7.45)
[2016-11-08 19:44] LABS: PEEP 12 CM/H20; TIDAL VOLUME 350 ML
[2016-11-09] VITALS (27 sets, daily range): BP systolic 69–145; BP diastolic 36–72
[2016-11-09 05:51] LABS: HEMATOCRIT 28.4 % (36.0-46.0); MCH 28.5 PG (29.0-34.0); MCHC 30.6 G/DL (30.0-36.0); MCV 93.1 FL (83-99); MEAN PLAT.VOLUME 9.6 uM^3 (9.5-12.4); PLATELET COUNT 430 K/uL (156-360); RBC DIS.WIDTH-CV 15.1 % (11.8-14.6); RBC DIS.WIDTH-SD 51.9 % (39-53); RED BLOOD COUNT 3.05 M/uL (3.80-5.20); WHITE BLOOD COUNT 26.8 K/uL (4.1-10.2)
[2016-11-09 06:15] LABS: LACTATE DEHYDROGENASE 230 IU/L (20-246)
[2016-11-09 06:28] LABS: ANION GAP 8 MEQ/L (2-14); CHLORIDE 108 MEQ/L (99-109); GFR ESTIMATE (CALCULATED) > 59 mL/min/; GLUCOSE 147 mg/dL (70-99); POTASSIUM 3.8 MEQ/L (3.7-5.4); SAMPLE HEMOLYSIS CHECK 0; SAMPLE ICTERIC CHECK 0; SAMPLE LIPEMIA CHECK 0; SODIUM 144 MEQ/L (136-147)
[2016-11-09 06:32] LABS: MAGNESIUM 2.3 mg/dl (1.3-2.7); UREA NITROGEN (BUN) 22 mg/dL (9-23)
[2016-11-09 07:03] LABS: ABS NEUTROPHIL COUNT 25.8; EOSINOPHIL ABS CT 0.2; EOSINOPHILS 0.8 % (0-5.0); HYPERSEGMENTATION 2+; INSTRUMENT ABS NEUTROPHIL CT 23.5 K/uL; LYMPHOCYTES 0.9 % (15.0-45.0); METAMYELOCYTES 0.9 %; PLAT.SUFFICIENCY INCREASED; POLYCHROMASIA 1+; SEG.NEUTROPHILS 93.1 % (46.0-76.0)
[2016-11-09 08:18] LABS: IRON < 10 MCG/DL (35-150)
[2016-11-09 12:05] LABS: BASE EXCESS -0.2 mEq/L (-3 to +3); BICARBONATE 28.7 mEq/L (22-26); CARBOXY HGB 2.3 % (0-5); METHEMOGLOBIN 1.9 % (0-1.5)
[2016-11-09 12:08] LABS: COMMENTS - BLOOD GASES A+C+; DEVICE 980 PB; FI02 90 %; MECHANICAL RATE 30 resp/min; MODE AC; PCO2 77 mm Hg (35-45); PEEP 12 CM/H20; PO2 42 mm Hg (80-100); SITE LR; TIDAL VOLUME 300 ML; TOTAL RESP RATE 30 resp/min; pH 7.18 (7.35-7.45)
[2016-11-09 12:57] LABS: IFE GEL NO. 44-2
[2016-11-09 13:04] LABS: BASE EXCESS -0.4 mEq/L (-3 to +3); BICARBONATE 27.6 mEq/L (22-26); CARBOXY HGB 0 % (0-5); METHEMOGLOBIN 1.8 % (0-1.5)
[2016-11-09 13:05] LABS: COMMENTS - BLOOD GASES A+C+; DEVICE 980 PB; FI02 90 %; PCO2 66 mm Hg (35-45); PO2 175 mm Hg (80-100); SITE LR; pH 7.23 (7.35-7.45)
[2016-11-09 13:06] LABS: MECHANICAL RATE 34 resp/min; MODE AC; PEEP 12 CM/H20; TIDAL VOLUME 300 ML; TOTAL RESP RATE 34 resp/min
[2016-11-09 14:54] LABS: ALKALINE PHOSPHATASE 93 IU/L (3-129); ANION GAP 7 MEQ/L (2-14); CHLORIDE 107 MEQ/L (99-109); DIRECT BILIRUBIN 0.3 mg/dL (0.0-0.3); GFR ESTIMATE (CALCULATED) > 59 mL/min/; GLUCOSE 186 mg/dL (70-99); MAGNESIUM 2.3 mg/dl (1.3-2.7); POTASSIUM 4.1 MEQ/L (3.7-5.4); SAMPLE HEMOLYSIS CHECK 0; SAMPLE ICTERIC CHECK 0; SAMPLE LIPEMIA CHECK 0; SODIUM 141 MEQ/L (136-147); UREA NITROGEN (BUN) 24 mg/dL (9-23)
[2016-11-09 14:59] LABS: TOTAL BILIRUBIN 0.6 MG/DL (0.0-1.0)
[2016-11-10] VITALS (17 sets, daily range): BP systolic 105–157; BP diastolic 47–79
[2016-11-10 05:44] LABS: BASOPHIL COUNT 0.1 K/uL (0-0.1); EOSINOPHIL (%) 4.1 % (0-5); EOSINOPHIL COUNT 0.8 K/uL (0-0.3); HEMATOCRIT 26.5 % (36.0-46.0); IMMATURE GRANULOCYTE (%) 2.8 % (0.0-0.7); IMMATURE GRANULOCYTE COUNT 0.6 K/uL; INSTRUMENT ABS NEUTROPHIL CT 15.8 K/uL; LYMPHOCYTE COUNT 1.1 K/uL (1.0-2.8); MCH 27.6 PG (29.0-34.0); MCHC 29.1 G/DL (30.0-36.0); MEAN PLAT.VOLUME 9.8 uM^3 (9.5-12.4); MONOCYTE (%) 5.5 % (3-12); MONOCYTE COUNT 1.1 K/uL (0-0.8); NEUTROPHIL (%) 81.4 % (45-76); NEUTROPHIL COUNT 15.8 K/uL (1.8-6.4); NRBC (%) 0.2 /100 WBC (0-0); PLATELET COUNT 475 K/uL (156-360); RBC DIS.WIDTH-CV 15.4 % (11.8-14.6); RBC DIS.WIDTH-SD 54.1 % (39-53); RED BLOOD COUNT 2.79 M/uL (3.80-5.20); WHITE BLOOD COUNT 19.4 K/uL (4.1-10.2)
[2016-11-10 06:00] LABS: ANION GAP 7 MEQ/L (2-14); CHLORIDE 108 MEQ/L (99-109); GFR ESTIMATE (CALCULATED) > 59 mL/min/; GLUCOSE 133 mg/dL (70-99); MAGNESIUM 2.2 mg/dl (1.3-2.7); POTASSIUM 4.4 MEQ/L (3.7-5.4); SAMPLE HEMOLYSIS CHECK 0; SAMPLE ICTERIC CHECK 0; SAMPLE LIPEMIA CHECK 0; SODIUM 141 MEQ/L (136-147); UREA NITROGEN (BUN) 24 mg/dL (9-23)
[2016-11-11] VITALS: BP 129/61
[2016-11-11 04:00] VITALS: BP 89/43
[2016-11-11 06:15] VITALS: BP 67/30
== END 2016-11-11 06:16 | DRG 3 ==
LOC: EME 14:59 → EDOF 19:44 → 4WEST 19:44 → EDOF 19:44 → 4WEST 20:53
PROVIDERS: Anesthesiology; Emergency Medicine; Family Medicine; Hospitalist; Internal Medicine; Internal Medicine Critical Care Medicine; Internal Medicine Nephrology; Internal Medicine Pulmonary Disease; Obstetrics & Gynecology; Radiology Diagnostic Radiology
PROC: 02HV33Z Insertion of Infusion Device into Superior Vena Cava, Percutaneous Approach (ICD-10-PCS; principal; 2016-10-16)
PROC: 5A1955Z Respiratory Ventilation, Greater than 96 Consecutive Hours (ICD-10-PCS; 2016-10-18)
PROC: 0BH17EZ Insertion of Endotracheal Airway into Trachea, Via Natural or Artificial Opening (ICD-10-PCS; 2016-10-18)
PROC: 03HY32Z Insertion of Monitoring Device into Upper Artery, Percutaneous Approach (ICD-10-PCS; 2016-10-18)
PROC: 03HY32Z Insertion of Monitoring Device into Upper Artery, Percutaneous Approach (ICD-10-PCS; 2016-10-24)
PROC: 0BJ08ZZ Inspection of Tracheobronchial Tree, Via Natural or Artificial Opening Endoscopic (ICD-10-PCS; 2016-10-26)
PROC: 02HV33Z Insertion of Infusion Device into Superior Vena Cava, Percutaneous Approach (ICD-10-PCS; 2016-10-26)
PROC: 0B9G8ZX Drainage of Left Upper Lung Lobe, Via Natural or Artificial Opening Endoscopic, Diagnostic (ICD-10-PCS; 2016-10-28)
PROC: 0W9940Z Drainage of Right Pleural Cavity with Drainage Device, Percutaneous Endoscopic Approach (ICD-10-PCS; 2016-11-01)
PROC: 0W9B30Z Drainage of Left Pleural Cavity with Drainage Device, Percutaneous Approach (ICD-10-PCS; 2016-11-01)
PROC: 30233N1 Transfusion of Nonautologous Red Blood Cells into Peripheral Vein, Percutaneous Approach (ICD-10-PCS; 2016-11-02)
PROC: 0B113F4 Bypass Trachea to Cutaneous with Tracheostomy Device, Percutaneous Approach (ICD-10-PCS; 2016-11-06)
PROC: 0D163J4 Bypass Stomach to Cutaneous with Synthetic Substitute, Percutaneous Approach (ICD-10-PCS; 2016-11-06)
DX: A41.01 Sepsis due to Methicillin susceptible Staphylococcus aureus (principal); R65.21 Severe sepsis with septic shock; J10.08 Influenza due to other identified influenza virus with other specified pneumonia; J15.211 Pneumonia due to Methicillin susceptible Staphylococcus aureus; N17.9 Acute kidney failure, unspecified; J96.01 Acute respiratory failure with hypoxia; J96.02 Acute respiratory failure with hypercapnia; J95.851 Ventilator associated pneumonia; B96.20 Unspecified Escherichia coli [E. coli] as the cause of diseases classified elsewhere; Z16.35 Resistance to multiple antimicrobial drugs; E87.2 Acidosis; T17.490A Other foreign object in trachea causing asphyxiation, initial encounter; E86.0 Dehydration; D64.9 Anemia, unspecified; D47.2 Monoclonal gammopathy; E87.6 Hypokalemia; R13.10 Dysphagia, unspecified; Z66 Do not resuscitate; I48.0 Paroxysmal atrial fibrillation; I95.9 Hypotension, unspecified; R19.7 Diarrhea, unspecified; T36.0X5A Adverse effect of penicillins, initial encounter; E83.51 Hypocalcemia; E80.6 Other disorders of bilirubin metabolism; R74.0 Nonspecific elevation of levels of transaminase and lactic acid dehydrogenase [LDH]; L84 Corns and callosities; M19.90 Unspecified osteoarthritis, unspecified site; M81.0 Age-related osteoporosis without current pathological fracture; M21.372 Foot drop, left foot; R26.2 Difficulty in walking, not elsewhere classified; R73.9 Hyperglycemia, unspecified; Z87.19 Personal history of other diseases of the digestive system; Z90.710 Acquired absence of both cervix and uterus; Z96.642 Presence of left artificial hip joint; Z96.651 Presence of right artificial knee joint
CPT/HCPCS: 36600; 71010; 71020; 71250; 71275; 72192; 80048; 80048 91; 80053; 80076; 80202; 80400; 81003; 81050; 82040; 82272; 82533 91; 82550; 82550 91; 82553; 82570; 82607; 82746; 82784 90; 82803; 82945; 82948; 83036; 83540; 83605; 83615; 83615 91; 83735; 83883 90; 84100; 84156; 84157; 84165; 84166; 84443; 84466; 84478; 84484; 85025; 85025 91; 85027; 85610; 85730; 86021 90; 86038; 86160; 86334; 86335; 86850; 86900; 86901; 86920; 87040; 87070; 87075; 87077; 87086; 87106; 87147; 87186; 87205; 87340; 87449; 87493; 87502; 87641; 87801; 88108; 88305; 89051; 93005; 93306; 94002; 94003; 94010; 94640; 94640 76; 94667; 94668; 94760; 94799; 97530 GP; 99202; 99281; 99285; C1751; C1769; J0330; J0456; J0610; J0690; J0692; J0834; J1120; J1170; J1630; J1650; J1815; J1940; J1956; J2060; J2185; J2250; J2270; J2405; J2543; J2704; J3010; J3370; J3475; J3480; J3486; J7030; J7040; J7050; J7060; J7120; P9016; P9045; P9047; S0028; S0032